=== PATIENT | female | born 1960 | race Caucasian/White ===

== ENCOUNTER 2021-01-13 06:29 | Day surgery (SDC) | payer BC ==
[~2021-01-13 06:29] MED LIST: ALPRAZolam 0.25 MG TAB PO PRN; ASPIRIN 325 MG TAB PO STA; HEPARIN SODIUM,PORCINE 10,000 UNIT in SODIUM CHLORIDE 0.9% 1,000 ML IRRIGATION PRN; HEPARIN SODIUM,PORCINE 2,500 UNIT in SODIUM CHLORIDE 0.9% 250 ML IRRIGATION PRN; NITROGLYCERIN SL TABS 0.4 MG TAB SUBLINGUAL PRN; SODIUM CHLORIDE 0.9% 1,000 ML in EMPTY BAG 1 BAG IV ONE
[2021-01-13] MEDS: ALPRAZolam 0.5 MG TAB PO PRN ×2 (06:53→19:28)
[2021-01-13 07:03] VITALS: RESP 16
[2021-01-13 07:07] LABS: Basophils % (A) 1 %; Eosinophils # (A) 0.1 k/uL (0-0.7); Eosinophils % (A) 3 %; HCT 37.1 % (34.0-46.0); HGB 12.5 gm/dL (11.4-16.0); Lymphocytes # (A) 1.8 k/uL (1.0-4.8); Lymphocytes % (A) 45 %; MCH 31.4 pg (25.0-35.0); MCHC 33.7 g/dL (31.0-37.0); MCV 93.2 fL (80.0-100.0); Mean Platelet Volume 7.6; Monocytes # (A) 0.3 k/uL (0-1.0); Monocytes % (A) 7 %; Neutrophils # (A) 1.7 k/uL (1.3-7.7); Neutrophils % (A) 42 %; Platelet Count 353 k/uL (150-450); RBC 3.98 m/uL (3.80-5.40); RDW 13.3 % (11.5-15.5); WBC 4.1 k/uL (3.8-10.6)
[2021-01-13] MEDS ORDERED: VERAPAMIL 2.5 MG/ML 2 ML AMP ONE (09:05)
[2021-01-13] MEDS ORDERED: LIDOCAINE 1% INJ 10MG/ML (20 ML MDV) ONE (09:05)
[2021-01-13] MEDS ORDERED: fentaNYL (PF) 50 MCG/ML 2 ML AMP ONE (09:06)
[2021-01-13] MEDS ORDERED: HEPARIN SODIUM 1,000 UN/ML (10ML VL) ONE (09:09)
[2021-01-13] MEDS: MIDAZOLAM 2 MG/2 ML VIAL IV ONE ×2 (09:18→09:55)
[2021-01-13] MEDS ORDERED: fentaNYL (PF) 50 MCG/ML 2 ML AMP IV ONE (09:18)
[2021-01-13] MEDS ORDERED: LIDOCAINE 1% INJ 10MG/ML (10 ML MDV) SQ ONE (09:21)
[2021-01-13] MEDS ORDERED: VERAPAMIL SYRINGE (5 MG/10 ML) INTRAARTER ONE (09:23)
[2021-01-13] MEDS: HEPARIN SODIUM 1,000 UN/ML (10ML VL) IV ONE ×3 (09:31→10:00)
[2021-01-13] MEDS ORDERED: NITROGLYCERIN 1000MCG/10ML SYRINGE INTRACORON ONE (09:40)
[2021-01-13] MEDS ORDERED: CLOPIDOGREL 75 MG TAB ONE (09:48)
[2021-01-13] MEDS ORDERED: CLOPIDOGREL 75 MG TAB PO ONE (09:59)
[2021-01-13] MEDS ORDERED: IOPAMIDOL-370 125ML BTL INJ ONE (10:05)
[2021-01-13] MEDS ORDERED: IOPAMIDOL-370 100ML BTL INJ ONE ×2 (10:16)
[2021-01-13] MEDS ORDERED: ATROPINE SULFATE 0.1 MG/ML 10ML SYRINGE IV PRN (10:33)
[2021-01-13] MEDS ORDERED: ZOLPIDEM 5 MG TAB PO PRN (10:33)
[2021-01-13] MEDS ORDERED: MAG HYDROX/AL HYDROX/SIMETH 30 ML CUP PO PRN (10:33)
[2021-01-13] MEDS ORDERED: RX INFO: IV CONTRAST WAS GIVEN 1 EACH MISC MISCELLANE PRN (10:33)
[2021-01-13] MEDS ORDERED: NITROGLYCERIN SL TABS 0.4 MG TAB SUBLINGUAL PRN (10:33)
[2021-01-13] MEDS ORDERED: SODIUM CHLORIDE 0.9% 1,000 ML IV SCH (10:45)
--- NOTE | 2021-01-13 10:57 | CC ---
CARDIAC CATHETERIZATION REPORT Mrs. Covarrubias is a 60-year-old female with known history of hypertension and family history of premature coronary disease who has been complaining of episodes of chest discomfort and underwent a stress test that revealed evidence of inferior wall ischemia. In view of that, recommendation was made regarding cardiac catheterization. The procedure as well as its risks and complications were discussed with the patient, who was in full understanding and agreement. PROCEDURE DESCRIPTION: Patient was brought to lab intern in a fasting state after receiving fentanyl and Benadryl and achieving a moderate conscious state. Using Xylocaine anesthesia and Seldinger technique, a 6-Andorran sheath was introduced in the right radial artery. Selective right and left coronary angiography was performed using 5-Andorran 3.5 bend right and left Faustina catheters. Multiple views were taken of the arteries, including hemiaxial views. The right Faustina was used to cross the aortic valve and left ventricular end-diastolic pressure was calculated. Following that, using the left Faustina catheter, a Doppler flow wire was advanced into the proximal LAD and IFR were measured across the left main. Following that, wire and catheter were removed. Images were reviewed. Of note, the patient received intra-arterial verapamil as well as 5000 units of intravenous heparin. There was no immediate complication. FINDINGS: FLUOROSCOPY: There was severe calcification involving the left main, left anterior descending artery and the right coronary artery. LEFT MAIN: This is a large-sized vessel bifurcating into left circumflex and left anterior descending artery artery. Left main coronary artery at the bifurcation has a 30% to 50% plaque with some ulceration. LEFT ANTERIOR DESCENDING ARTERY: This is a large-sized vessel reaching toward the apex with a wrap around the apex segment giving rise to a diagonal branch of moderate caliber. Following the diagonal branch there is a tubular lesion of 50% to 60%. The proximal LAD has a 20% to 30% plaque. LEFT CIRCUMFLEX: This is a nondominant vessel giving rise to 2 obtuse marginal branches. The first one is large in caliber. The left circumflex has mild intimal disease of 20% to 30% throughout its course involving the obtuse marginal branch with no evidence of high-grade stenosis. RIGHT CORONARY ARTERY: This is a dominant vessel bifurcating distally into PDA and posterolateral segment and branches, calcified. In the mid right coronary artery there is a 99% complex lesion with slow flow in the distal vessel. COLLATERALS: There are collaterals from the left coronary system toward the right PDA. LEFT VENTRICULOGRAM: Left ventriculogram was not performed. HEMODYNAMICS: There was no gradient across the aortic valve. The left ventricular end- diastolic pressure was 12-16 mmHg. CONCLUSION: 1. Calcified coronary arteries. 2. Borderline significant left main distal lesion with a normal IFR of 1.02. 3. Moderate disease in the mid LAD and mild disease in the proximal LAD. 4. Mild disease in the left circumflex. 5. Critical stenosis in the mid right coronary artery. RECOMMENDATIONS: In view of findings and anatomy, I have recommended proceeding with angioplasty and stenting of the right coronary artery. The procedure as well as its risks and complications were discussed with the patient, who is in full understanding and agreement. MMODL / IJN: [id number] / HIRAL
--- NOTE | 2021-01-13 10:59 | PTCA ---
PERCUTANEOUSTRANS CORORONARY ANGIOGRAPHY DATE OF PROCEDURE: 01/13/2021 Mrs. Covarrubias is a 60-year-old female with a known history of hypertension and a family history of premature coronary artery disease who had abnormal myocardial perfusion imaging, underwent cardiac catheterization and was found to have a critical stenosis in the mid right coronary artery with borderline significant lesion in the left main. She underwent IFR measurement to the left main that was normal. In view of that, recommendation was made regarding angioplasty and stenting of the right coronary artery. The procedure as well as its risks and complications were discussed with the patient, who was in full understanding and agreement. PROCEDURE DESCRIPTION: A 6-Belarusian FR4 guiding catheter was introduced into the system. After cannulating the right coronary artery, a 0.014 balanced medium weight J-wire could not cross the lesion. That wire was kept in place and a 0.014 Whisper J-wire with the help of a straight microcatheter was able to cross the lesion. The wire was exchanged for a BMW J-wire. Subsequently and after removing the microcatheter, a 2.0 x 12 mm Trek balloon was advanced and one inflation at 8 atmospheres was done. Following that, the balloon was removed and a 3.0 x 28 mm Xience Skypoint stent was advanced, deployed and post- dilated at 16 atmospheres. Following that, the balloon was removed and there was evidence of dissection in the proximal segment. A 3.0 x 23 mm Xience Skypoint stent was advanced, deployed and post-dilated at 16 atmospheres and inflation in the ostium was done. Following that, the balloon and the wire were withdrawn back into the guiding catheter. Images were obtained and repeated. Those images revealed stable successful stenting. At that point, the guiding catheter, the balloon and the guidewire were removed. The sheath was removed. Hemostasis was obtained with deployment of a TR band. There was no immediate complication. Patient was returned to her room in stable condition. Of note, the patient had chest discomfort with the inflation that resolved during the procedure. She received a total of 6000 units of intravenous heparin and her ACT was followed. She has chest discomfort but no EKG changes. She received an oral loading dose of clopidogrel. RESULTS: Successful stenting of the mid right coronary artery with reduction of stenosis from 99% to 0% with stenting of the ostium of the right coronary artery. RECOMMENDATIONS: Patient will be continued on aspirin, Plavix and statin with aggressive coronary risk modifications. The importance of dual antiplatelet treatment was discussed with the patient and her family, and they are in full understanding and agreement. Close followup of her left main disease will be done. Duration of sedation was 57 minutes. ELIZABETH / ADELIA: [id number] /
--- NOTE | 2021-01-13 11:07 | LTR ---
January 13, 2021 To: Dr. Susu Leija Re: Eli Covarrubias (60) Dear Dr. Leija, I had the pleasure of performing cardiac catheterization and coronary angioplasty and stenting on Mrs. Covarrubias at [facility] on January 13. A full copy of the procedure note will be forwarded to you. In brief, she was found to have a borderline significant distal left main disease that was normal by IFR measurement. Subsequently she was found to have severe obstructive disease in the mid right coronary artery and underwent successful stenting of that vessel as well as stenting of the proximal segment of the RCA. I am hopeful that this procedure will stabilize her status. I will keep you updated on her progress. Thank you again for allowing me to participate in this patient's care. Please feel free to call with any questions. Sincerely, Aiden Ignacio M.D. ELIZABETH / ADELIA: [id number] /
[2021-01-13] MEDS ORDERED: Acetaminophen-Codeine 300-30mg TAB PO STA (11:12)
[2021-01-13] MEDS ORDERED: Acetaminophen-Codeine 300-30mg TAB ONE (11:14)
[2021-01-13 15:54] VITALS: BMI 24.2
[2021-01-13] MEDS ORDERED: TEMAZEPAM 15 MG CAP PO PRN (19:11)
[2021-01-13] MEDS ORDERED: ACETAMINOPHEN TAB 325 MG TAB PO PRN (19:11)
[2021-01-13] MEDS ORDERED: FLUoxetine HCL 10 MG CAP PO SCH (21:00)
[2021-01-14 06:41] LABS: African American GFR (CKD) 72 (>60 ml/min/1.73 sqM); Anion Gap 5 mmol/L; Blood Urea Nitrogen 22 mg/dL (7-17); Calcium 9.5 mg/dL (8.4-10.2); Carbon Dioxide 24 mmol/L (22-30); Chloride 107 mmol/L (98-107); Glucose 96 mg/dL (74-99); Non-African American GFR(CKD) 62 (>60 ml/min/1.73 sqM); Sodium 136 mmol/L (137-145)
[2021-01-14 06:53] LABS: Potassium 3.8 mmol/L (3.5-5.1)
[2021-01-14 07:04] VITALS: BP 130/81; PULSE 74; TEMP 97.7
[2021-01-14] MEDS ORDERED: CLOPIDOGREL 75 MG TAB PO SCH (09:00)
[2021-01-14] MEDS ORDERED: ASPIRIN 81 MG PO SCH (09:00)
[2021-01-14] MEDS ORDERED: ATORVASTATIN 80 MG TAB PO SCH (09:00)
[2021-01-14] MEDS ORDERED: BISOPROLOL-HCTZ 5-6.25 MG 1 EACH TAB PO SCH (09:00)
--- NOTE | 2021-01-14 10:21 | PN ---
PROGRESS NOTE Ms. Covarrubias is a 60-year-old female known history of hypertension, family history of premature coronary disease who presented with symptoms of chest discomfort and abnormal myocardial perfusion imaging, underwent cardiac catheterization and was found to have a subtotally occluded mid right coronary artery with borderline lesion in the left main, underwent IFR of the left main that was non hemodynamically significant. Subsequently, underwent stenting of the RCA. She is doing well this morning. She denies any chest pain her breathing has been stable. She denies any dizziness. No palpitation. She is in sinus mechanism. Continues to be on aspirin once a day, Lipitor 80 mg daily, bisoprolol ACT 5-6.25 mg twice a day, Plavix 75 mg daily, Prozac 10 mg daily. PHYSICAL EXAMINATION: Blood pressure 130/80 with a heart rate in the 70s. Lungs: Clear. Heart regular rate and rhythm S1, S2. No S3. No rub. Abdomen: Soft nontender. Extremities: No edema. Right radial pulse is intact. LAB DATA: Lab data revealed BUN and creatinine 22 and 0.99, potassium 3.8. EKG shows no acute changes. IMPRESSION: 1. Status post stenting of the RCA. 2. Moderate disease in the left main. 3. Hypertension. RECOMMENDATION: Patient will be discharged home today and followed as an outpatient. MMODL / SABINON: [id number] /
== END 2021-01-14 08:33 | disposition home or self-care (01) ==
LOC: CATHCVL 06:29 → 6NMEDSUR 12:03 → CATHCVL 01-14 08:33
PROVIDERS: ATTEND Internal Medicine Interventional Cardiology
DX: I25.10 Atherosclerotic heart disease of native coronary artery without angina pectoris (principal); I10 Essential (primary) hypertension; R09.89 Other specified symptoms and signs involving the circulatory and respiratory systems
CPT/HCPCS: 93571; 93458; 80048; 85025; C9600; C1769 ×5; C1887 ×2; C1894; C1725; C1874 ×2; J2250; J3010; J1644; J2001; Q9967 ×2

== ENCOUNTER 2022-05-02 07:02 | Day surgery (SDC) | payer BC ==
[~2022-05-02 07:02] MED LIST changes: +ALPRAZolam 0.5 MG TAB PO PRN; +ATORVASTATIN 80 MG TAB PO STA; -SODIUM CHLORIDE 0.9% 1,000 ML in EMPTY BAG 1 BAG IV ONE
[2022-05-02] MEDS: SODIUM CHLORIDE 0.9% 1,000 ML in EMPTY BAG 1 BAG IV SCH ×2 (07:18→20:20)
[2022-05-02] MEDS ORDERED: ASPIRIN 81 MG ONE (07:24)
[2022-05-02] MEDS ORDERED: VERAPAMIL 2.5 MG/ML 2 ML AMP ONE (08:11)
[2022-05-02] MEDS ORDERED: HEPARIN SODIUM 1,000 UN/ML (10ML VL) ONE (08:19)
[2022-05-02] MEDS ORDERED: fentaNYL (PF) 50 MCG/ML 2 ML AMP ONE (08:19)
[2022-05-02] MEDS ORDERED: fentaNYL (PF) 50 MCG/ML 2 ML AMP IV ONE (08:30)
[2022-05-02] MEDS ORDERED: LIDOCAINE 1% INJ 10MG/ML (5 ML VIAL-PF) SQ ONE ×2 (08:34→08:41)
[2022-05-02] MEDS ORDERED: VERAPAMIL SYRINGE (5 MG/10 ML) INTRAARTER ONE (08:43)
[2022-05-02] MEDS: MIDAZOLAM 2 MG/2 ML VIAL IV ONE ×2 (08:46→09:04)
[2022-05-02] MEDS: HEPARIN SODIUM 1,000 UN/ML (10ML VL) IV ONE ×3 (08:50→09:13)
[2022-05-02] MEDS ORDERED: NITROGLYCERIN 1000MCG/10ML SYRINGE INTRAARTER ONE ×2 (08:59→09:08)
[2022-05-02] MEDS ORDERED: IOPAMIDOL-370 125ML BTL INJ ONE (09:28)
[2022-05-02] MEDS ORDERED: IOPAMIDOL-370 100ML BTL INJ ONE (10:06)
[2022-05-02] MEDS ORDERED: NITROGLYCERIN SL TABS 0.4 MG TAB SUBLINGUAL PRN (10:13)
[2022-05-02] MEDS ORDERED: MAG HYDROX/AL HYDROX/SIMETH 30 ML CUP PO PRN (10:13)
[2022-05-02] MEDS ORDERED: ZOLPIDEM 5 MG TAB PO PRN (10:13)
[2022-05-02] MEDS ORDERED: ATROPINE SULFATE 0.1 MG/ML 10ML SYRINGE IV PRN (10:13)
[2022-05-02] MEDS ORDERED: RX INFO: IV CONTRAST WAS GIVEN 1 EACH MISC MISCELLANE PRN (10:13)
[2022-05-02] MEDS ORDERED: SODIUM CHLORIDE 0.9% 1,000 ML in EMPTY BAG 1 BAG IV SCH (10:15)
--- NOTE | 2022-05-02 10:26 | P.CARDCATH ---
Date of Procedure: 05/02/22 Description of Procedure: Cardiac Catheterization: The patient is a 62-year-old female with known history of hyperlipidemia, family history of CAD, prior stenting of the RCA in January 2021 who presented with symptoms of progressive dyspnea and fatigue. Her symptoms reminds her of the way she felt prior to stenting. Recommendations were made regarding cardiac catheterization, the risks and the complications were discussed with the patient who is in full understanding and agreement. 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 Using Xylocaine Anesthesia and Seldinger technique, a 6-Kittitian sheath was introduced in the left radial artery . Subsequently, selective coronary angiography was performed using a 5-Kittitian 3.5 bend left Faustina and 4 bend right Faustina catheter. Multiple views of the coronary artery including hemiaxial views were obtained. The the left Faustina catheter was used to cross the aortic valve and LVEDP was calculated. After removing the catheters a 6-Kittitian CLS 3.5 guiding catheter with introduced in the system and after cannulating the left main a Doppler flow wire, Omni wire is positioned in the proximal LAD, IFR of the left main was calculated and subsequently in the mid LAD and IFR was calculated. Subsequently attempted to advance a 2.5 x 12 mm NC treck balloon was unsuccessful because of poor backup. At that point that any catheter, the balloon and the wire were removed. A 6- Kittitian CLS 3 was advanced in the left main was cannulated subsequently 0.014 BMW J-wire was positioned in the distal LAD. The balloon was advanced and 2 i nflation at 8 jorje were done. After removing the balloon attempted to advanced a 2.5 x 15 mm Xience elenita point stent was unsuccessful, after removing the stent a 6-Kittitian Tastebudslla support catheter was introduced and the stent was advanced, positioned and deployed at 16 jorje. After removing the balloon attempted to advance a 2.75 x 12 and a 2.75 x 8 mm NC balloon were unsuccessful, the balloon was removed and a 2.75 x 12 mm Treck was advanced and inflation was done in the proximal segment of the stent. There was inability to advance the NC balloon. After that the balloon and the wire were withdrawn back into the guiding catheter images were obtained and repeated and revealed stable successful stenting. Following that, catheter and sheath were removed. Hemostasis was obtained with deployment of TR band . There was no immediate complication. Patient was returned to room in stable condition. Of note, the patient received a total of 6000 units of intravenous heparin as well as intra-arterial verapamil. She was continued on clopidogrel, her ACT was monitored, she had uncomfortable feeling with the inflations with mild EKG changes that resolved at the end of the procedure. Findings: Fluoroscopy: Severe calcification of the left main, LAD and proximal RCA were noted Left main: Left main this is a large size vessel, bifurcating into LAD and left circumflex. The left main has a 30-40% plaque distally with irregularity but no high-grade stenosis. LAD: This is a large size vessel, reaching to the apex with a wrap around the apex segment, calcified. The proximal LAD had a 40% plaque. The mid LAD after the takeoff of the second diagonal branch has a 70% plaque, heavily calcified, the rest of the vessel has no high-grade stenosis. Left circumflex: This is a large nondominant vessel giving rise to a large obtuse marginal branch, the left circumflex has mild disease was 20-30 % with no high-grade stenosis. RCA: This is a large dominant vessel, bifurcating into PDA and PLV, the stented segment in the proximal and mid RCA are patent with no evidence of significant in-stent restenosis. IFR the left main 1.02, IFR of mid LAD 0.78 Left Ventriculogram: Not performed Hemodynamics: There was no gradient across the aortic valve , LVEDP was 7-10 mmHg Conclusion: 1. Heavily calcified coronary arteries 2. Mild disease in the distal left main, hemodynamically nonsignificant by IFR 3. Patent stents in the RCA with no significant restenosis 4. Significant disease in the mid LAD with significant IFR 5. Successful stenting of the mid LAD with reduction of stenosis from 70% to less than 5% Recommendations: The patient will continue on dual antiplatelet treatment with aspirin and Plavix for at least 6 months in addition to aggressive coronary risks modifications.. The findings and the recommendations were discussed with the patient and the family and they were in full understanding and agreement. Duration of sedation is 84 minutes.
[2022-05-02 14:11] VITALS: BMI 24.0
[2022-05-02] MEDS ORDERED: ACETAMINOPHEN TAB 325 MG TAB PO PRN (18:38)
[2022-05-02] MEDS ORDERED: FLUoxetine HCL 10 MG CAP PO SCH (21:00)
[2022-05-02] MEDS ORDERED: ZOLPIDEM 5 MG TAB PO SCH (21:00)
[2022-05-03 04:07] VITALS: PULSE 70
[2022-05-03 06:09] LABS: African American GFR (CKD) 71 (>60 ml/min/1.73 sqM); Anion Gap 5 mmol/L; Blood Urea Nitrogen 17 mg/dL (7-17); Calcium 8.5 mg/dL (8.4-10.2); Carbon Dioxide 23 mmol/L (22-30); Chloride 112 mmol/L (98-107); Glucose 92 mg/dL (74-99); Non-African American GFR(CKD) 61 (>60 ml/min/1.73 sqM); Potassium 3.9 mmol/L (3.5-5.1); Sodium 140 mmol/L (137-145)
[2022-05-03 07:48] VITALS: BP 114/69; RESP 20; TEMP 97.8
--- NOTE | 2022-05-03 08:13 | P.PN ---
Subjective Progress Note Date: 05/03/22 PROGRESS NOTE The patient is a 62-year-old female with known history of CAD, hyperlipidemia and prior stenting of the RCA in January 2021 who has been complaining of progressive dyspnea on exertion, underwent cardiac catheterization yesterday and was found to have heavily calcified LAD with significant disease in the mid LAD by IFR, underwent stenting of that vessel. She is doing well this morning, a mbulating without difficulty. She feels that her breathing is better. She denies any dizziness or palpitations. Medications: Aspirin, Lipitor 80 mg daily, Plavix 75 mg daily, Prozac 10 mg daily, Ziac 56 0.25 mg daily,Zetia 10 mg daily PHYSICAL EXAMINATION: Blood pressure 114/69 heart rate 70 LUNGS: Clear to auscultation HEART: Regular rate and rhythm, S1, S2. No S3. No systolic murmur ABDOMEN: Soft, nontender, no organomegaly EXTREMETIES: No edema, left radial pulse intact LAB: EKG shows sinus mechanism with no acute ST segment changes. BUN 17, creatinine 0.99 IMPRESSION: 1. Status post stenting of the LAD in a calcified segment 2. Prior stenting of the RCA, patent 3. Hyperlipidemia PLAN: 1. Continue present therapy 2. Increase physical activity 3. Discharged home today 4. And follow-up in one week Objective - Vital Signs Vital signs: Vital Signs Temp 97.8 F 05/03/22 07:18 Pulse 70 05/03/22 07:18 Resp 20 05/03/22 07:18 BP 114/69 05/03/22 07:18 Pulse Ox 98 05/03/22 07:18 FiO2 Intake & Output 05/02/22 05/03/22 05/03/22 18:59 06:59 18:59 Intake Total 1355 Balance 1355 Weight 59.8 kg Intake: IV 900 Intake, IV Titration 275 Amount Sodium Chloride 0.9% 1, 275 000 ml In Empty Bag 1 bag @ 1 ML/KG/HR 59.8 mls/hr IV .[id number] JAD Rx#: [id number] Oral 180 Other: Voiding Method Toilet # Voids 1 2 - Labs CBC & Chem 7: 05/03/22 05:24 Labs: Abnormal Lab Results - Last 24 Hours (Table) 05/03/22 Range/Units 05:24 Chloride 112 H (98-107) mmol/L
[2022-05-03] MEDS ORDERED: CLOPIDOGREL 75 MG TAB PO SCH (09:00)
[2022-05-03] MEDS ORDERED: EZETIMIBE 10 MG TAB PO SCH (09:00)
[2022-05-03] MEDS ORDERED: ASPIRIN 81 MG PO SCH (09:00)
[2022-05-03] MEDS ORDERED: BISOPROLOL-HCTZ 5-6.25 MG 1 EACH TAB PO SCH (09:00)
[2022-05-03] MEDS ORDERED: ATORVASTATIN 80 MG TAB PO SCH (09:00)
== END 2022-05-03 11:03 | disposition home or self-care (01) ==
LOC: CATHCVL 07:02 → 6NMEDSUR 09:57 → CATHCVL 05-03 11:03
PROVIDERS: ATTEND Internal Medicine Interventional Cardiology
DX: I25.10 Atherosclerotic heart disease of native coronary artery without angina pectoris (principal); E78.5 Hyperlipidemia, unspecified; Z95.5 Presence of coronary angioplasty implant and graft; Z82.49 Family history of ischemic heart disease and other diseases of the circulatory system; I10 Essential (primary) hypertension; Z87.891 Personal history of nicotine dependence; Z79.01 Long term (current) use of anticoagulants; Z79.02 Long term (current) use of antithrombotics/antiplatelets; Z79.899 Other long term (current) drug therapy
CPT/HCPCS: 94760; 93571; 93458; 80048; C1769 ×5; C9600; C1887 ×2; C1894; C1725 ×4; C1874; J2250; J2001; J3010; J1644; Q9967 ×2